=== PATIENT | male | born 1950 | race Caucasian/White ===

== ENCOUNTER 2019-03-24 13:44 | Inpatient (IN) | payer MEDICARE, BC ==
[2019-03-24] MEDS ORDERED: ONDANSETRON 4 MG/2 ML VIAL IVP PRN (13:57)
[2019-03-24] MEDS ORDERED: NALOXONE 0.4 MG/ML 1 ML VIAL IV PRN (13:57)
--- NOTE | 2019-03-24 14:04 | ED ---
General Adult HPI - General Chief complaint: GI Bleed Stated complaint: GI Bleed Time Seen by Provider: 03/24/19 13:47 Source: patient, EMS, RN notes reviewed, old records reviewed Mode of arrival: EMS Limitations: no limitations - History of Present Illness Initial comments: 68-year-old male presenting as transfer from outside hospital. Patient was seen and evaluated for lightheadedness, near-syncope, and melanotic stool. Is found to be Hemoccult positive. Hemoglobin of 9 at the transferring facility. His vital signs remained stable and he was transferred for gastroenterology evaluation. Patient does have history of peptic ulcer disease. He admits to moderate alcohol consumption on the weekends. He is not on any anticoagulation. He is asymptomatic at rest. No chest pain. No dyspnea. Review of Systems ROS Statement: Those systems with pertinent positive or pertinent negative responses have been documented in the HPI. ROS Other: All systems not noted in ROS Statement are negative. Past Medical History Past Medical History: GERD/Reflux, GI Bleed History of Any Multi-Drug Resistant Organisms: None Reported Past Surgical History: Tonsillectomy Past Psychological History: No Psychological Hx Reported Smoking Status: Former smoker Past Alcohol Use History: Occasional Past Drug Use History: None Reported General Exam Limitations: no limitations General appearance: alert, in no apparent distress Head exam: Present: atraumatic, normocephalic Eye exam: Present: normal appearance, PERRL ENT exam: Present: normal exam Neck exam: Present: normal inspection. Absent: tenderness, meningismus Respiratory exam: Present: normal lung sounds bilaterally. Absent: respiratory distress Cardiovascular Exam: Present: regular rate, normal rhythm GI/Abdominal exam: Present: soft. Absent: distended, tenderness, guarding, rebound Extremities exam: Present: normal inspection, normal capillary refill. Absent: pedal edema, calf tenderness Neurological exam: Present: alert, oriented X3, CN II-XII intact. Absent: motor sensory deficit Psychiatric exam: Present: normal affect, normal mood Skin exam: Present: warm, dry, intact. Absent: cyanosis, diaphoretic Course Vital Signs 03/24/19 13:49 Temperature 98.8 F Pulse Rate 85 Respiratory 18 Rate Blood Pressure 113/74 O2 Sat by Pulse 98 Oximetry Medical Decision Making - Medical Decision Making 68-year-old male presenting with suspected upper GI bleed. He is given Nexium infusion prior to arrival. He is continued on proton pump inhibitors. Hemoglobin will be repeated as well as a type and screen at this time. These are pending. He will be admitted with gastroenterology on consult. Disposition Clinical Impression: Melena Disposition: ADMITTED IP TO THIS HOSP Condition: Stable Is patient prescribed a controlled substance at d/c from ED?: No Referrals: None,Stated [Primary Care Provider] - 1-2 days Decision to Admit Reason: Admit from EC Decision Date: 03/24/19 Decision Time: 14:04
[2019-03-24 16:37] LABS: Basophils # (A) 0.1 k/uL (0-0.2); Basophils % (A) 0 %; Eosinophils # (A) 0.4 k/uL (0-0.7); Eosinophils % (A) 2 %; HCT 31.1 % (39.0-53.0); HGB 10.9 gm/dL (13.0-17.5); Lymphocytes # (A) 3.5 k/uL (1.0-4.8); Lymphocytes % (A) 23 %; MCH 32.9 pg (25.0-35.0); Mean Platelet Volume 9.7; Monocytes # (A) 0.8 k/uL (0-1.0); Monocytes % (A) 6 %; Neutrophils # (A) 10.2 k/uL (1.3-7.7); Neutrophils % (A) 68 %; Platelet Count 126 k/uL (150-450); RBC 3.31 m/uL (4.30-5.90); RDW 14.4 % (11.5-15.5); WBC 15.1 k/uL (3.8-10.6)
[2019-03-24] MEDS: PANTOPRAZOLE 40 MG/10 ML VIAL IVP SCH (21:43)
[2019-03-24] MEDS: SODIUM CHLORIDE 0.9% 1,000 ML IV SCH (21:44)
[2019-03-24 21:51] VITALS: BMI 34.8
[2019-03-25 02:27] LABS: Basophils % (A) 0 %; Eosinophils # (A) 0.3 k/uL (0-0.7); Eosinophils % (A) 2 %; HCT 27.3 % (39.0-53.0); Lymphocytes # (A) 3.7 k/uL (1.0-4.8); Lymphocytes % (A) 31 %; MCH 32.1 pg (25.0-35.0); MCHC 33.8 g/dL (31.0-37.0); Mean Platelet Volume 7.8; Monocytes # (A) 0.5 k/uL (0-1.0); Monocytes % (A) 4 %; Neutrophils # (A) 7.3 k/uL (1.3-7.7); Neutrophils % (A) 61 %; Platelet Count 204 k/uL (150-450); RBC 2.87 m/uL (4.30-5.90); RDW 12.8 % (11.5-15.5)
[2019-03-25 02:45] LABS: HGB 9.2 gm/dL (13.0-17.5)
[2019-03-25 08:24] LABS: Basophils # (A) 0.1 k/uL (0-0.2); Basophils % (A) 0 %; Eosinophils # (A) 0.4 k/uL (0-0.7); Eosinophils % (A) 3 %; HCT 26.3 % (39.0-53.0); HGB 9.3 gm/dL (13.0-17.5); Lymphocytes # (A) 3.7 k/uL (1.0-4.8); Lymphocytes % (A) 31 %; MCH 33.3 pg (25.0-35.0); MCHC 35.5 g/dL (31.0-37.0); MCV 93.9 fL (80.0-100.0); Mean Platelet Volume 9.3; Monocytes # (A) 0.6 k/uL (0-1.0); Monocytes % (A) 5 %; Neutrophils # (A) 7.3 k/uL (1.3-7.7); Neutrophils % (A) 60 %; Platelet Count 202 k/uL (150-450); RBC 2.81 m/uL (4.30-5.90); RDW 13.9 % (11.5-15.5); WBC 12.1 k/uL (3.8-10.6)
--- NOTE | 2019-03-25 08:45 | CONS ---
CONSULTATION DATE OF DICTATION: March 25, 2019. REQUESTING PHYSICIAN: Dr. Bran. REASON FOR CONSULTATION: Melena. HISTORY OF PRESENT ILLNESS: The patient is a 68-year-old pleasant white male, transferred from [facility] where he presented with black tarry stools that started yesterday morning. He had 2 episodes of black tarry stools and had an episode of lightheadedness and near syncope. In the emergency room at [facility], had a hemoglobin of 9, and he was transferred to [facility] for further management. The patient denies any abdominal pain. Reports no recent NSAID use. He just had some tooth infection and was given some antibiotics recently and took aspirin for a week. No prior history of peptic ulcer disease. About 3 years ago, he had an episode of acute GI bleed. He was admitted at [facility] in [place] and he recalls having an EGD and colonoscopy, but he thinks they were completely normal. PAST MEDICAL HISTORY: GERD, history of GI bleed. PAST SURGICAL HISTORY: Tonsillectomy. MEDICATIONS: At home none. SOCIAL HISTORY: No smoking. No alcohol use. FAMILY HISTORY: Unremarkable. REVIEW OF SYSTEMS: CARDIOPULMONARY: No chest pain or shortness of breath. GENITOURINARY: No dysuria or hematuria. MUSCULOSKELETAL: Unremarkable. SKIN unremarkable. ENDOCRINE unremarkable. PSYCHIATRIC unremarkable. NEUROLOGY unremarkable. ENT/vision unremarkable. CONSTITUTIONAL: No recent weight loss. No fever, chills, night sweats. PHYSICAL EXAMINATION: He appears comfortable. No apparent distress. Vital signs is stable. Blood pressure is 113/74, pulse 85, temperature 98.8. HEENT examination unremarkable. Conjunctivae pink. Sclerae anicteric. Oral cavity no lesions. NECK: No JVD or lymph node enlargement. CHEST: Clear to auscultation. HEART: Regular rate and rhythm. ABDOMEN: Soft. Bowel sounds are positive. No organomegaly. EXTREMITIES: No pedal edema. SKIN no rashes. NEUROLOGIC: Alert and oriented x3. No focal deficits. LABS: From yesterday WBC 15.1, hemoglobin 10.9. Today, hemoglobin is 9.3. IMPRESSION: This is a patient who presents to the hospital with black tarry stools of 2 days duration. I witnessed 1 of the bowel movements this morning which was black and tarry. He denies any associated abdominal pain. He took some aspirin last week for tooth infection for tooth pain. Likely we are dealing with an upper gastrointestinal pathology/peptic ulcer disease. The patient hemodynamically stable. RECOMMENDATIONS: 1. Continue with Protonix 40 mg IV q.12 hours. 2. Clear liquid diet. 3. We will proceed with an EGD tomorrow. Discussed with the patient risks, benefits, and complications of the procedure and he is agreeable to it. Thank you for this consultation. MMEDITHL / IJN: [id number] /
[2019-03-25] MEDS: PANTOPRAZOLE 40 MG/10 ML VIAL IVP SCH ×2 (08:48→22:22)
[2019-03-25 08:49] LABS: ALT 35 U/L (21-72); AST 20 U/L (17-59); African American GFR (CKD) >90 (>60 ml/min/1.73 sqM); Albumin 2.8 g/dL (3.5-5.0); Alkaline Phosphatase 34 U/L (38-126); Anion Gap 6 mmol/L; Blood Urea Nitrogen 39 mg/dL (9-20); Calcium 8.7 mg/dL (8.4-10.2); Carbon Dioxide 24 mmol/L (22-30); Chloride 109 mmol/L (98-107); Glucose 83 mg/dL (74-99); Potassium 4.5 mmol/L (3.5-5.1); Sodium 139 mmol/L (137-145); Total Bilirubin 0.5 mg/dL (0.2-1.3); Total Protein 4.9 g/dL (6.3-8.2)
--- NOTE | 2019-03-25 15:41 | P.HPIM ---
History of Present Illness H&P Date: 03/25/19 68-year-old male presenting as transfer from outside hospital. Patient was seen and evaluated for lightheadedness, near-syncope, and melanotic stool. Is found to be Hemoccult positive. Hemoglobin of 9 at the transferring facility. His vital signs remained stable and he was transferred for gastroenterology evaluation. Patient does have history of peptic ulcer disease. He admits to moderate alcohol consumption on the weekends. He is not on any anticoagulation. He is asymptomatic at rest. No chest pain. No dyspnea. Workup in ED which showed drop in hemoglobin; blood was type and crossmatch and helps to be transferred feels stiff hemoglobin drops below 8.0; patient is started on IV Protonix infusion and is admitted to hospital for further evaluation by GI service Review of Systems Constitutional: Denies chills, Denies fever Eyes: denies blurred vision Ears, nose, mouth and throat: Denies epistaxis Cardiovascular: Denies chest pain Respiratory: Denies cough with sputum Gastrointestinal: Reports melena, Reports nausea, Denies abdominal pain, Denies vomiting Genitourinary: Denies dysuria, Denies hematuria Musculoskeletal: Denies gait dysfunction Integumentary: Denies color changes, Denies darkening of skin Neurological: Denies confusion, Denies convulsions, Denies double vision Endocrine: Denies cold intolerance, Denies heat intolerance Past Medical History Past Medical History: GERD/Reflux, GI Bleed History of Any Multi-Drug Resistant Organisms: None Reported Past Surgical History: Tonsillectomy Additional Past Surgical History / Comment(s): Recently had stitches placed in his mouth in February 2019. Colonoscopy/EGD at [facility] 2 years ago - reports having negative results. Past Anesthesia/Blood Transfusion Reactions: No Reported Reaction Past Psychological History: No Psychological Hx Reported Smoking Status: Former smoker Past Alcohol Use History: Occasional Additional Past Alcohol Use History / Comment(s): Reports drinking, not much per patient. Past Drug Use History: None Reported - Past Family History Father Family Medical History: COPD Additional Family Medical History / Comment(s): " because he smoked so much." Mother Additional Family Medical History / Comment(s): "Mother of an aneurysm". Aunt on mother's side is in her 80s and doing well. Medications and Allergies Home Medications Medication Instructions Recorded Confirmed Type Chlorhexidine Gluconate [Peridex] 15 ml PO BID 03/24/19 03/24/19 History Ibuprofen [Motrin] 800 mg PO TID PRN 03/24/19 03/24/19 History Allergies Allergy/AdvReac Type Severity Reaction Status Date / Time No Known Allergies Allergy Unverified 03/24/19 14:10 Physical Exam Vitals: Vital Signs Temp Pulse Pulse Resp BP BP Pulse Ox 03/25/19 05:46 97.4 F L 16 133/65 96 03/24/19 22:30 98.0 F 79 16 112/72 96 03/24/19 18:00 82 18 107/66 96 03/24/19 13:49 98.8 F 85 18 113/74 98 Intake and Output 03/24/19 03/25/19 03/25/19 22:59 06:59 14:59 Intake Total 1500 Output Total 3 Balance 1497 Intake: Intake, IV Titration 850 Amount Sodium Chloride 0.9% 1, 850 000 ml @ 75 mls/hr IV . [id number] [facility] Rx#:[id number] Oral 650 Output: Urine 3 Other: Voiding Method Toilet # Voids 1 # Bowel Movements 1 3 0 Weight 103.9 kg General appearance: alert, in no apparent distress Head exam: Present: atraumatic, normocephalic Eye exam: Present: normal appearance, PERRL ENT exam: Present: normal exam Neck exam: Present: normal inspection. Absent: tenderness, meningismus Respiratory exam: Present: normal lung sounds bilaterally. Absent: respiratory distress Cardiovascular Exam: Present: regular rate, normal rhythm GI/Abdominal exam: Present: soft. Absent: distended, tenderness, guarding, rebound Extremities exam: Present: normal inspection, normal capillary refill. Absent: pedal edema, calf tenderness Neurological exam: Present: alert, oriented X3, CN II-XII intact. Absent: motor sensory deficit Psychiatric exam: Present: normal affect, normal mood Skin exam: Present: warm, dry, intact. Absent: cyanosis, diaphoretic Results CBC & Chem 7: 03/25/19 07:39 03/25/19 07:39 Labs: Abnormal Lab Results - Last 24 Hours (Table) 03/24/19 03/25/19 03/25/19 Range/Units 16:06 02:15 07:39 WBC 15.1 H 12.0 H 12.1 H (3.8-10.6) k/uL RBC 3.31 L 2.87 L 2.81 L (4.30-5.90) m/uL Hgb 10.9 L 9.2 L D 9.3 L (13.0-17.5) gm/dL Hct 31.1 L 27.3 L 26.3 L (39.0-53.0) % Plt Count 126 L (150-450) k/uL Neutrophils # 10.2 H (1.3-7.7) k/uL Chloride (98-107) mmol/L BUN (9-20) mg/dL Alkaline Phosphatase (38-126) U/L Total Protein (6.3-8.2) g/dL Albumin (3.5-5.0) g/dL 03/25/19 Range/Units 07:39 WBC (3.8-10.6) k/uL RBC (4.30-5.90) m/uL Hgb (13.0-17.5) gm/dL Hct (39.0-53.0) % Plt Count (150-450) k/uL Neutrophils # (1.3-7.7) k/uL Chloride 109 H (98-107) mmol/L BUN 39 H (9-20) mg/dL Alkaline Phosphatase 34 L (38-126) U/L Total Protein 4.9 L (6.3-8.2) g/dL Albumin 2.8 L (3.5-5.0) g/dL Thrombosis Risk Factor Assmnt - Choose All That Apply Each Factor Represents 1 point: Age 41-60 years Other Risk Factors: No Other congenital or acquired thrombophilia - If yes, enter type in comment: No Thrombosis Risk Factor Assessment Total Risk Factor Score: 1 Thrombosis Risk Factor Assessment Level: Low Risk Assessment and Plan Assessment: 1. Melena/GI bleed - Continue with IV Protonix 40 mg daily; monitor H&H closely and type crossmatch and transfuse if hemoglobin is less than 8.0 - Consult GI for further recommendations; patient is kept on clear liquid diet and will remain made nothing by mouth after midnight 2. Acute blood loss anemia - Patient did have a hemoglobin dropping from 10.9-9.3 this morning - We have typed and crossmatched and held 1 unit of packed RBCs to be transfused as needed 3. Gastroesophageal reflux disease; IV Protonix 4. DVT prophylaxis; SCDs only due to GI bleed CODE STATUS; full code Time with Patient: Greater than 30
[2019-03-25 16:43] LABS: Basophils % (A) 0 %; Eosinophils # (A) 0.2 k/uL (0-0.7); Eosinophils % (A) 1 %; HCT 24.2 % (39.0-53.0); HGB 8.5 gm/dL (13.0-17.5); Lymphocytes # (A) 3.1 k/uL (1.0-4.8); Lymphocytes % (A) 31 %; MCH 33.2 pg (25.0-35.0); MCHC 35.1 g/dL (31.0-37.0); MCV 94.6 fL (80.0-100.0); Mean Platelet Volume 8.1; Monocytes # (A) 0.6 k/uL (0-1.0); Monocytes % (A) 6 %; Neutrophils % (A) 60 %; Platelet Count 192 k/uL (150-450); RBC 2.56 m/uL (4.30-5.90); WBC 10.1 k/uL (3.8-10.6)
[2019-03-25] MEDS: SODIUM CHLORIDE 0.9% 1,000 ML IV SCH ×2 (23:16→23:40)
[2019-03-26] MEDS: PANTOPRAZOLE 40 MG/10 ML VIAL IVP SCH ×2 (07:51→22:40)
[2019-03-26] MEDS: SODIUM CHLORIDE 0.9% 1,000 ML IV SCH ×2 (07:56→22:43)
[2019-03-26 07:58] LABS: African American GFR (CKD) >90 (>60 ml/min/1.73 sqM); Anion Gap 5 mmol/L; Blood Urea Nitrogen 17 mg/dL (9-20); Calcium 8.5 mg/dL (8.4-10.2); Carbon Dioxide 27 mmol/L (22-30); Chloride 107 mmol/L (98-107); Glucose 91 mg/dL (74-99); Potassium 3.9 mmol/L (3.5-5.1); Sodium 139 mmol/L (137-145)
[2019-03-26] MEDS ORDERED: PROPOFOL 10 MG/ML 20 ML VIAL IV ONE (11:05)
[2019-03-26] MEDS ORDERED: IV FLUID CONTINUATION 1,000 ML IV ONE (11:11)
[2019-03-26] MEDS ORDERED: SODIUM CHLORIDE 0.9% 500 ML 500 ML IV ONE (11:21)
--- NOTE | 2019-03-26 11:22 | P.PCN ---
Date of Procedure: 03/26/19 Implants: BRIEF HISTORY: Patient is a 68-year-old, pleasant, male, admitted hospital with black stools of 3 days' duration. He dropped hemoglobin from 10 grams per deciliter total 8 g/dL. He has history of recent NSAID use. Schedule for an upper endoscopy to evaluate further.. PROCEDURE PERFORMED: Esophagogastroduodenoscopy with biopsy and cautery. PREOPERATIVE DIAGNOSIS: Acute upper GI bleed. IV sedation per anesthesia. PROCEDURE: After informed consent was obtained, the patient was brought into the endoscopy unit. IV sedation was administered by Anesthesia under continuous monitoring. Initially the Olympus GIF-140 video endoscope was inserted into the mouth. Esophagus intubated without any difficulty. It was gradually advanced into the stomach and duodenum and carefully examined. In the bulb of the duodenum there was a 1.5 cm superficial ulcer with a brownish protuberance suspicious for recent bleed but no active bleeding noted. At this time I proceeded with cautery using a gold probe and the pigmented protuberance was cauterized with good hemostasis. The scope at this time was withdrawn to the stomach, adequately insufflated with air, and upon careful examination, mucosa of the antrum, and mild gastritis and biopsies were done from this area. The body, cardia and the fundus appeared normal. The scope was then withdrawn into the esophagus. The GE junction was located at 39 cm from the incisors. The esophagus appeared normal. There were no erosions or ulcerations seen and the patient tolerated the procedure well. IMPRESSION: 1. 2 cm superficial duodenal bulbar ulcer with a brownish protuberance but no active bleeding, status post cautery. 2. Mild antral gastritis. RECOMMENDATIONS: The findings of this examination were discussed with the patient as well as his family. He will continue with Protonix 40 mg every 12 hours and will be started on a full liquid diet today..
[2019-03-27 04:44] VITALS: BP 123/63; PULSE 86; RESP 20; TEMP 98.7
--- NOTE | 2019-03-27 07:24 | PN ---
PROGRESS NOTE DATE OF SERVICE: 03/26/2019 This 68-year-old gentleman who was admitted with melena, GI bleed underwent upper endoscopy by Dr. Kwok which showed a 2 cm superficial duodenal ulcer with brownish protuberance with no active bleeding and cautery was done. Patient is being closely monitored. No chest pain. No palpitations. No fever. PHYSICAL EXAMINATION: On exam, alert and oriented x3. Pulse is 92, blood pressure 113/73, respiration 20, temperature 99 degrees, pulse ox 97% on room air. HEENT: Conjunctivae normal. NECK: No jugular venous distention. CARDIOVASCULAR: S1, S2 muffled. RESPIRATORY; breath sounds diminished at the bases. Scattered rhonchi and crackles. ABDOMEN: Soft, mild diffuse discomfort on palpation. No guarding. No rigidity. No mass palpable. LEGS: No edema. No swelling. NERVOUS SYSTEM: No focal deficits. LABS: Hemoglobin is 8.5 yesterday. The white count is 10.1. ASSESSMENT: 1. Upper gastrointestinal bleed secondary to a 2 cm superficial duodenal ulcer with acute blood loss anemia. 2. History of gastroesophageal reflux disease. 3. Increased WBC, possibly reactive, improved. 4. Tonsillectomy. 5. History of remote history of nicotine dependence. RECOMMENDATIONS AND DISCUSSION: This 68-year-old gentleman who presented with multiple medical issues, we will monitor the patient closely. Continue the current medications. Continue symptomatic treatment. Proton pump inhibitors. I recommend to hold NSAIDs and I would also recommend repeat labs and advance the diet per Gastroenterology. If the patient is stable, able to tolerate diet, hemoglobin stable and no further bleeding is noted, may be able to discharge the patient in the next 24 to 48 hours. Once again, the prognosis guarded. Further recommendations to follow. MMODL / IJN: [id number] /
[2019-03-27] MEDS: PANTOPRAZOLE 40 MG/10 ML VIAL IVP SCH (07:35)
[2019-03-27 09:00] LABS: Anisocytosis Slight; Basophils % (A) 0 %; Eosinophils # (A) 0.3 k/uL (0-0.7); Eosinophils % (A) 3 %; HCT 25.1 % (39.0-53.0); HGB 8.6 gm/dL (13.0-17.5); Lymphocytes # (A) 2.3 k/uL (1.0-4.8); Lymphocytes % (A) 23 %; MCH 33.3 pg (25.0-35.0); MCHC 34.4 g/dL (31.0-37.0); MCV 96.7 fL (80.0-100.0); Mean Platelet Volume 8.3; Monocytes # (A) 0.6 k/uL (0-1.0); Monocytes % (A) 6 %; Neutrophils # (A) 6.6 k/uL (1.3-7.7); Neutrophils % (A) 67 %; Platelet Count 223 k/uL (150-450); RBC 2.59 m/uL (4.30-5.90); RDW 16.4 % (11.5-15.5); WBC 9.9 k/uL (3.8-10.6)
[2019-03-27 09:32] LABS: African American GFR (CKD) >90 (>60 ml/min/1.73 sqM); Anion Gap 6 mmol/L; Blood Urea Nitrogen 14 mg/dL (9-20); Calcium 8.6 mg/dL (8.4-10.2); Carbon Dioxide 25 mmol/L (22-30); Chloride 106 mmol/L (98-107); Glucose 95 mg/dL (74-99); Potassium 3.8 mmol/L (3.5-5.1); Sodium 137 mmol/L (137-145)
--- NOTE | 2019-03-27 10:22 | P.PN ---
Subjective Progress Note Date: 03/27/19 Principal diagnosis: GI bleed Status post EGD yesterday to 7 m superficial duodenal bulb ulcer with brownish protuberance but no active bleeding status post cautery with mild antral gastritis. CBC pending. Denies nausea vomiting hematemesis hematochezia or melena. Tolerating full liquids. Objective - Vital Signs Vital signs: Vital Signs Temp 98.7 F 03/27/19 04:27 Pulse 86 03/27/19 04:27 Resp 20 03/27/19 04:27 BP 123/63 03/27/19 04:27 Pulse Ox 98 03/27/19 04:27 Intake & Output 03/26/19 03/27/19 03/27/19 18:59 06:59 18:59 Intake Total 790 525 Balance 790 525 Intake: IV 200 Intake, IV Titration 525 Amount Sodium Chloride 0.9% 1, 525 000 ml @ 75 mls/hr IV . [id number] [facility] Rx#:[id number] Oral 590 Other: Voiding Method Toilet # Voids 3 2 # Bowel Movements 2 - Exam General appearance: The patient is alert, oriented, in no acute distress. HET: Head is normocephalic and atraumatic. Pupils are equal and reactive. Oropharynx is clear without lesions. Neck: Supple without lymphadenopathy. Trachea midline. Heart: S1 S2. Regular rate and rhythm. Lungs: No crackles or wheezes are heard. Abdomen: Soft, nontender, nondistended with bowel sounds. No peritoneal signs. No palpable organomegaly or masses. Extremities: Normal skin color and turgor. No cyanosis, rash, ulceration, clubbing, or edema. Radial and pedal pulses are 2/4 bilaterally. Neurological: No focal deficits. Strength and sensation are grossly intact. - Labs CBC & Chem 7: 03/27/19 08:03 03/27/19 08:03 Assessment and Plan (1) Duodenal bulb ulcer Current Visit: Yes Status: Acute Code(s): K26.9 - DUODENAL ULCER, UNSP ACUTE OR CHRONIC, W/O HEMOR OR PERF SNOMED Code(s): 29795184 (2) GI bleed Current Visit: Yes Status: Acute Code(s): K92.2 - GASTROINTESTINAL HEMORRHAGE, UNSPECIFIED SNOMED Code(s): 79852321 (3) Acute blood loss anemia Current Visit: Yes Status: Acute Code(s): D62 - ACUTE POSTHEMORRHAGIC ANEMIA SNOMED Code(s): 995716449 Plan: 1. Advance diet as tolerated as long as CBC is stable. CBC monitoring. Continue with Protonix 40 mg daily on discharge. Return to office in 2-3 weeks for reevaluation. Assessment and plan a care discussed with Dr. Rodrigues
--- NOTE | 2019-03-28 07:02 | DS ---
DISCHARGE SUMMARY DATE OF SERVICE: 03/27/2019 FINAL DIAGNOSES: 1. Upper gastrointestinal bleeding secondary to 2 cm superficial duodenal ulcer with acute blood loss anemia, improved. 2. History of gastroesophageal reflux disease. 3. Increased WBC, possibly reactive, improved. 4. Tonsillectomy. 5. History of remote history of nicotine dependence. DISCHARGE DISPOSITION: The patient will be discharged in stable condition with guarded prognosis. HISTORY OF PRESENT ILLNESS: This 68-year-old gentleman with past medical history of multiple medical problems admitted with upper gastrointestinal bleeding. The evaluation showed superficial duodenal ulcer, treated symptomatically. Patient improved significantly. Dr. Rodrigues saw the patient, recommended outpatient followup. On exam, vitals are stable. CARDIOVASCULAR: S1, S2 muffled. ABDOMEN: Soft. NERVOUS SYSTEM: No focal deficits. DISCHARGE ADVICE: 1. Diet is cardiac. 2. Activity limited until followup. 3. Follow up with Dr. Kwok in 2 to 3 days. 4. Follow up with a primary physician in 1 to 2 days. MEDICATIONS ARE: 1. Peridex 15 mL p.o. b.i.d. 2. Carafate 1 gram a.c. and at bedtime. 3. Protonix 40 mg daily. Once again the patient will be discharged in a stable condition with guarded prognosis. Follow up with Dr. Delbert Yip. MMMYRNA / DAEN: [id number] /
== END 2019-03-27 13:05 | disposition home or self-care (01) | DRG 378 ==
LOC: EC 13:44 → 4SSUR 13:57 → 3NMEDONC 17:30 → OBSVTOIN 03-25 12:24
PROVIDERS: ADMIT Internal Medicine; ATTEND Internal Medicine
PROC: 0W3P8ZZ Control Bleeding in Gastrointestinal Tract, Via Natural or Artificial Opening Endoscopic (ICD-10-PCS; principal; 2019-03-26 07:30)
PROC: 0DB78ZX Excision of Stomach, Pylorus, Via Natural or Artificial Opening Endoscopic, Diagnostic (ICD-10-PCS; 2019-03-26 07:30)
DX: K26.4 Chronic or unspecified duodenal ulcer with hemorrhage (principal); D62 Acute posthemorrhagic anemia; K29.70 Gastritis, unspecified, without bleeding; K21.9 Gastro-esophageal reflux disease without esophagitis; Z79.899 Other long term (current) drug therapy; Z87.11 Personal history of peptic ulcer disease; Z87.891 Personal history of nicotine dependence; Z98.890 Other specified postprocedural states; Z82.5 Family history of asthma and other chronic lower respiratory diseases; Z82.49 Family history of ischemic heart disease and other diseases of the circulatory system
CPT/HCPCS: 36415; 43239; 43270; 80048; 80053; 85025; 86850; 86900; 86901; 88305; 99285